=== PATIENT | male | born 1960 | race Caucasian/White ===

== ENCOUNTER 2018-03-04 06:19 | Emergency (ER) | payer SELFPAY, OTHER ==
[2018-03-04] MEDS: IBUPROFEN 800 MG TAB PO (07:19)
[2018-03-04 08:03] LABS: TROPONIN-I < 0.012 ng/ml (0.00-0.12)
== END 2018-03-04 09:18 | disposition home or self-care (01) ==
LOC: E/R 06:19
DX: R07.89 Other chest pain (principal)
CPT/HCPCS: 84484; 93005; 99283-25